=== PATIENT | female | born 1955 | race Hispanic/Latino ===

== ENCOUNTER 2023-02-04 05:46 | Observation (INO) | payer OTHER, MEDICARE ==
[2023-01-29 14:42] LABS: BASOPHILS # (AUTO) 0.03 K/uL (0.00-0.20); BASOPHILS % (AUTO) 0.5 % (0.0-5.0); EOSINOPHILS # (AUTO) 0.13 K/uL (0.00-0.70); EOSINOPHILS % (AUTO) 2.1 % (0.0-8.0); HEMATOCRIT 39.7 % (36-48); IMMATURE GRANULOCYTE ABSOLUTE 0.02 K/uL (0-1); LYMPHOCYTES # (AUTO) 1.7 K/uL (1.0-4.8); LYMPHOCYTES % (AUTO) 28.3 % (21.0-51.0); MEAN CORPUSCULAR HGB CONC 32.5 g/dL (32.0-36.0); MEAN CORPUSCULAR VOLUME 89.2 fL (79-99); MONOCYTES # (AUTO) 0.4 K/uL (0.1-1.0); MONOCYTES % (AUTO) 6.6 % (3.0-13.0); NEUTROPHILS # (AUTO) 3.8 K/uL (1.8-7.7); NEUTROPHILS % (AUTO) 62.2 % (40.0-77.0); PLATELET COUNT (AUTO) 180 K/uL (130-400); RED BLOOD CELL COUNT(AUTO) 4.45 MIL/uL (4.00-5.50); WHITE BLOOD COUNT (AUTO) 6.1 K/uL (4.8-10.8)
[2023-01-29 14:51] VITALS: BP 134/67; PULSE 51; RESP 17
[2023-01-29 14:53] LABS: INR 0.94 (0.85-1.15); PROTHROMBIN TIME 10.9 SEC (9.6-11.6)
[2023-01-29 14:55] LABS: PARTIAL THROMBOPLASTIN TIME 29.6 SEC (26.3-35.5)
[2023-01-29 14:59] LABS: CREATININE 0.5 mg/dL (0.5-1.5); POTASSIUM 4.3 mmol/L (3.5-5.1)
[~2023-02-04] VITALS: Ht 162.6 cm; Wt 80.5 kg
[2023-02-04] VITALS (37 sets, daily range): BP systolic 116–154; BP diastolic 56–79; PULSE 60–78; RESP 15–18
[~2023-02-04 05:46] MED LIST: ALBUHFA IH; ASPI-1005 PO; ATOR40TA71 PO; CHOL500051 PO; DOCU100C33 PO; EMPA10TA PO; FISH1CAP27 PO; GABA-529 PO; IRBE150T24 PO; ISOS30TA92 PO; LACT10SO5 PO; LEVO50TA11 PO; LINA5TAB PO; MULT-1367 PO; NITR0.4T50 SL; OMEP20CA12 PO; SIME125C81 PO
[2023-02-04] MEDS ORDERED: CEFAZOLIN SODIUM 2 GM VIAL ONE (06:56)
[2023-02-04] MEDS ORDERED: 0.9%NACL 1000ML 1,000 ML IV ONE (06:57)
[2023-02-04] MEDS ORDERED: TRANEXAMIC ACID 1000MG/10ML ONE (08:17)
[2023-02-04] MEDS ORDERED: ROPIVACAINE 0.5% 5MG/ML 30ML IJ ONE ×2 (08:54→08:55)
[2023-02-04] MEDS ORDERED: SUCCINYLCHOLINE CHLORIDE 20 MG/ML 10 ML VIAL ONE (08:55)
[2023-02-04] MEDS ORDERED: LIDOCAINE PF 100MG/5ML (2%) SYRINGE 5ML ONE ×2 (08:55→08:57)
[2023-02-04] MEDS ORDERED: ROCURONIUM 10MG/1ML SYR 10 MG/ML ML ONE (08:56)
[2023-02-04] MEDS ORDERED: PROPOFOL 10 MG/ML 20ML VIAL IV ONE ×2 (08:56→09:06)
[2023-02-04] MEDS ORDERED: GLYCOPYRROLATE 1 MG/5 ML SYRINGE ONE (08:56)
[2023-02-04] MEDS ORDERED: NEOSTIGMINE 5MG/5ML SYR IV ONE (08:56)
[2023-02-04] MEDS ORDERED: MIDAZOLAM HCL 1 MG/ML 2ML VIAL ONE (08:56)
[2023-02-04] MEDS ORDERED: ONDANSETRON 4MG INJ ONE (08:56)
[2023-02-04] MEDS ORDERED: FENTANYL CITRATE PF 50 MCG/1 ML 2ML VIAL ONE (08:57)
[2023-02-04] MEDS ORDERED: ISOSORBIDE MONO 30MG SR TAB PO PRN (09:30)
[2023-02-04] MEDS ORDERED: NITROGLYCERIN 0.4 MG SL TAB SL PRN (09:30)
[2023-02-04] MEDS ORDERED: ALBUTEROL INHALER 90MCG/INH IH PRN (10:00)
[2023-02-04] MEDS ORDERED: MEPERIDINE-PF 25 MG/ML SYG ONE ×3 (11:21→12:24)
[2023-02-04] MEDS ORDERED: MORPHINE 4 MG SYG IVP PRN (11:30)
[2023-02-04] MEDS ORDERED: POTASSIUM CHLORIDE 10% ELIXIR 20 MEQ/15 ML UDCUP PO PRN (11:30)
[2023-02-04] MEDS: 0.9%NACL 1000ML 1,000 ML IV SCH ×3 (11:30→21:44)
[2023-02-04] MEDS ORDERED: KCL 20 MEQ ERTAB PO PRN (11:30)
[2023-02-04] MEDS ORDERED: HYDROCODONE/ACETAMINOPHEN 5/325 MG TAB PO PRN (11:30)
[2023-02-04] MEDS: INSULIN HUMULIN R 100 UNIT/ML 3ML SQ SCH ×3 (11:30→20:23)
[2023-02-04] MEDS ORDERED: POTASSIUM CHLORIDE 20MEQ/100ML 100 ML IV PRN (11:30)
[2023-02-04] MEDS: ACETAMINOPHEN 1,000 MG/100 ML VIAL IV SCH ×3 (12:00→23:30)
[2023-02-04] MEDS: TRAMADOL HCL 50 MG TABLET PO SCH ×3 (13:26→23:31)
[2023-02-04] MEDS: GABAPENTIN 100 MG CAPSULE PO SCH ×2 (13:37→20:28)
[2023-02-04] MEDS: IBUPROFEN 800MG + NS 250ML IV SCH ×2 (14:30→21:43)
[2023-02-04] MEDS: HYDROCODONE/ACETAMINOPHEN 10/325 MG TAB PO PRN (15:32)
[2023-02-04] MEDS: CEFAZOLIN SODIUM 2 GM VIAL IVPB SCH (18:45)
[2023-02-04] MEDS: LINAGLIPTIN 5 MG TABLET PO SCH (20:28)
[2023-02-04] MEDS: FISH OIL 1000 MG/CAP PO SCH (20:28)
[2023-02-04] MEDS: DOCUSATE SODIUM 100 MG CAP PO SCH (20:28)
[2023-02-04] MEDS: IRBESARTAN 150 MG PO SCH (20:28)
[2023-02-04] MEDS: FAMOTIDINE 20MG TAB PO SCH (20:28)
[2023-02-04] MEDS: SIMETHICONE 125 MG PO SCH (20:28)
[2023-02-05] MEDS: CEFAZOLIN SODIUM 2 GM VIAL IVPB SCH (01:08)
[2023-02-05] MEDS: ONDANSETRON 4MG INJ IVP PRN ×2 (02:33→13:24)
[2023-02-05 03:44] LABS: HEMATOCRIT 34.6 % (36-48); MEAN CORPUSCULAR HEMOGLOBIN 29.4 pg (27.0-33.0); MEAN CORPUSCULAR HGB CONC 32.7 g/dL (32.0-36.0); MEAN CORPUSCULAR VOLUME 90.1 fL (79-99); RED BLOOD CELL COUNT(AUTO) 3.84 MIL/uL (4.00-5.50); WHITE BLOOD COUNT (AUTO) 9.6 K/uL (4.8-10.8)
[2023-02-05 03:54] LABS: CREATININE 0.6 mg/dL (0.5-1.5); POTASSIUM 4.3 mmol/L (3.5-5.1)
[2023-02-05 04:24] VITALS: BP 140/66; PULSE 76; RESP 18
[2023-02-05] MEDS: 0.9%NACL 1000ML 1,000 ML IV SCH (05:00)
[2023-02-05] MEDS: IBUPROFEN 800MG + NS 250ML IV SCH (05:59)
[2023-02-05] MEDS: TRAMADOL HCL 50 MG TABLET PO SCH ×3 (05:59→18:07)
[2023-02-05] MEDS: INSULIN HUMULIN R 100 UNIT/ML 3ML SQ SCH ×4 (05:59→21:00)
[2023-02-05] MEDS: LEVOTHYROXINE 50 MCG TABLET PO SCH (05:59)
[2023-02-05 08:00] VITALS: O2SAT 97
[2023-02-05 08:47] VITALS: BP 126/54; PULSE 68; RESP 16
[2023-02-05] MEDS: SIMETHICONE 125 MG PO SCH ×2 (09:00→21:00)
[2023-02-05] MEDS: LACTULOSE 20 GM/30 ML UDCUP PO SCH ×2 (09:00→09:59)
[2023-02-05] MEDS: POLYETHYLENE GLYCOL 3350 17 GM POWD.PACK PO SCH (09:59)
[2023-02-05] MEDS: ENOXAPARIN SODIUM 30 MG/0.3 ML SQ SCH (10:00)
[2023-02-05] MEDS: FISH OIL 1000 MG/CAP PO SCH ×2 (10:00→21:23)
[2023-02-05] MEDS: DOCUSATE SODIUM 100 MG CAP PO SCH ×2 (10:01→21:23)
[2023-02-05] MEDS: EMPAGLIFLOZIN 10MG TABLET PO SCH (10:01)
[2023-02-05] MEDS: FAMOTIDINE 20MG TAB PO SCH ×2 (10:01→21:23)
[2023-02-05] MEDS: GABAPENTIN 100 MG CAPSULE PO SCH ×3 (10:01→21:23)
[2023-02-05] MEDS: HYDROCODONE/ACETAMINOPHEN 10/325 MG TAB PO PRN (10:01)
[2023-02-05] MEDS: PANTOPRAZOLE 40 MG TAB DR PO SCH (10:01)
[2023-02-05 12:29] VITALS: BP 112/58; PULSE 68; RESP 16
[2023-02-05 16:00] VITALS: BP 117/55; PULSE 62; RESP 16
[2023-02-05 20:32] VITALS: BP 131/56; PULSE 72; RESP 16
[2023-02-05] MEDS: IRBESARTAN 150 MG PO SCH (21:00)
[2023-02-05] MEDS: LINAGLIPTIN 5 MG TABLET PO SCH (21:23)
[2023-02-06] MEDS: TRAMADOL HCL 50 MG TABLET PO SCH ×2 (00:32→11:48)
[2023-02-06 04:06] VITALS: BP 115/63; PULSE 88; RESP 16
[2023-02-06] MEDS: INSULIN HUMULIN R 100 UNIT/ML 3ML SQ SCH (07:30)
[2023-02-06] MEDS: LEVOTHYROXINE 50 MCG TABLET PO SCH (08:10)
[2023-02-06] MEDS: GABAPENTIN 100 MG CAPSULE PO SCH (08:11)
[2023-02-06] MEDS: DOCUSATE SODIUM 100 MG CAP PO SCH (08:11)
[2023-02-06] MEDS: FISH OIL 1000 MG/CAP PO SCH (08:11)
[2023-02-06] MEDS: EMPAGLIFLOZIN 10MG TABLET PO SCH (08:11)
[2023-02-06] MEDS: FAMOTIDINE 20MG TAB PO SCH (08:11)
[2023-02-06] MEDS: SIMETHICONE 125 MG PO SCH (08:13)
[2023-02-06] MEDS: ENOXAPARIN SODIUM 30 MG/0.3 ML SQ SCH (08:15)
[2023-02-06 08:19] VITALS: BP 126/54; PULSE 88; RESP 18
[2023-02-06] MEDS: LACTULOSE 20 GM/30 ML UDCUP PO SCH (09:00)
[2023-02-06] MEDS: POLYETHYLENE GLYCOL 3350 17 GM POWD.PACK PO SCH (09:00)
[2023-02-06] MEDS: PANTOPRAZOLE 40 MG TAB DR PO SCH (09:00)
[2023-02-06 11:57] VITALS: BP 119/57; PULSE 76; RESP 18
[2023-02-07] MEDS ORDERED: BISACODYL 10 MG SUPP.RECT RC PRN (11:30)
== END 2023-02-06 13:45 ==
LOC: DAH 05:46 → DAHIP 05:47 → 4AH 14:15
PROVIDERS: ADMIT Orthopaedic Surgery; ATTEND Orthopaedic Surgery
DX: M16.11 Unilateral primary osteoarthritis, right hip (principal); Z20.822 Contact with and (suspected) exposure to COVID-19; D62 Acute posthemorrhagic anemia; Z79.899 Other long term (current) drug therapy; Z98.890 Other specified postprocedural states
CPT/HCPCS: 80048 ×2; 85025; 85610; 85730; 87426; 36415 ×2; 87641; 27130; 96365; 96366 ×2; 96367; 96368; 64450; 82948 ×9; 73503; 72170; 96376; 96372 ×2; 96375; 85027; 97161; 97039; 97116 ×3; 97530; A6260; C1776 ×4; G0378 ×44; A4663; A4606; A4600; J3010; J3490 ×2; J2710; J0330; J7030; J2001 ×2; J2250; J2704 ×2; J2405 ×3; J2175 ×3; J2795 ×2; J1741 ×2; J0690 ×3; A4649 ×2; G0168; A6212; A5120; A4215; A4223; A4222; A4221; J1650 ×2